=== PATIENT | male | born 1980 | race Caucasian/White ===

== ENCOUNTER 2020-06-16 12:02 | Inpatient (IN) ==
[2020-06-16] MEDS ORDERED: Morphine Sulfate 2 MG/ML SYRINGE IVP ONE (12:35)
[2020-06-16] MEDS ORDERED: Lidocaine 1% 20 ML MDV ONE (12:38)
[2020-06-16 12:44] LABS: Basophils % 0.2 %; Eosinophils # 0.3 K/mcL (0.0-0.6); Eosinophils % 2.9 %; Hematocrit 41.5 % (37.5-50.1); Hemoglobin 13.5 g/dL (12.9-16.9); Immature Granulocytes % 0.4 % (0-4); Lymphocytes # 2.1 K/mcL (0.6-4.6); Mean Corpuscular HGB Conc 32.5 g/dL (31.6-35.5); Mean Corpuscular Volume 89.2 fL (83.0-100.0); Mean Platelet Volume 9.4 fL (9.4-12.4); Monocytes # 0.8 K/mcL (0.0-1.3); Monocytes % 8.1 %; Neutrophils # 6.6 K/mcL (1.6-8.9); Platelet Count 221 K/mcL (140-400); Red Blood Count 4.65 M/mcL (4.19-5.50); Red Cell Distribution Width 14.2 % (11.5-14.5); Segmented Neutrophils % 67.4 %; White Blood Count 9.8 K/mcL (4.3-11.1)
[2020-06-16 12:48] LABS: INR 1.3; Prothrombin Time 14.7 Seconds (9.4-12.1)
[2020-06-16 13:04] LABS: Alanine Aminotransferase 57 Units/L (7-52); Albumin 4.2 g/dL (3.5-5.7); Albumin/Globulin Ratio 1.4 (1.1-2.2); Alkaline Phosphatase 81 Units/L (34-104); Aspartate Amino Transferase 31 Units/L (13-39); BUN/Creatinine Ratio 13 (6-26); Bilirubin,Total 0.3 mg/dL (0.3-1.0); Blood Urea Nitrogen 13 mg/dL (6-20); Calcium 9.1 mg/dL (8.6-10.3); Carbon Dioxide 30 mEq/L (23-29); Chloride 108 mEq/L (98-107); Glucose 83 mg/dL (70-105); Osmolality,Calculated 295 (280-300); Potassium 4.2 mEq/L (3.5-5.1); Sodium 143 mEq/L (136-145); Total Protein 7.2 g/dL (6.4-8.9); eGFR For African Americans > 60 (> 60); eGFR For Non-African Americans > 60 (> 60)
[2020-06-16 13:45] LABS: Adenovirus Not Detected (Not Detect); Bordetella Pertussis Not Detected (Not Detect); Chlamydophila pneumoniae Not Detected (Not Detect); Coronavirus 229E Not Detected (Not Detect); Coronavirus HKU1 Not Detected (Not Detect); Coronavirus NL63 Not Detected (Not Detect); Coronavirus OC43 Not Detected (Not Detect); Human Metapneumovirus Not Detected (Not Detect); Human Rhinovirus/Enterovirus Not Detected (Not Detect); Influenza A Subtype 2009 H1 Not Detected (Not Detect); Influenza B Not Detected (Not Detect); Mycoplasma pneumoniae Not Detected (Not Detect); Parainfluenza Virus 1 Not Detected (Not Detect); Parainfluenza Virus 2 Not Detected (Not Detect); Parainfluenza Virus 3 Not Detected (Not Detect); Parainfluenza Virus 4 Not Detected (Not Detect); Respiratory Syncytial Virus Not Detected (Not Detect); SARS-CoV-2 Not Detected (Not Detect)
[2020-06-16] MEDS ORDERED: Ibuprofen 400 MG TABLET PO PRN (14:24)
[2020-06-16] MEDS ORDERED: Ondansetron 4 MG/2 ML VIAL IVP PRN (14:24)
[2020-06-16] MEDS ORDERED: Naloxone 0.4 MG/ML INJ IVP PRN (14:24)
[2020-06-16] MEDS ORDERED: Acetaminophen 325 MG TABLET PO PRN (14:24)
[2020-06-16] MEDS: *HR* HYDROcodone/Acet 5/325 mg TABLET PO PRN ×2 (16:14→20:19)
[2020-06-16] MEDS: Nicotine 21 MG PATCH.TD24 TD SCH (17:16)
[2020-06-16] MEDS: Nicotine 2 MG GUM BC PRN ×2 (17:16→21:10)
[2020-06-16] MEDS: Gabapentin 300 MG CAPSULE PO SCH (20:19)
[2020-06-17] MEDS: hydrOXYzine pamoate 25 MG CAPSULE PO PRN ×3 (00:20→21:31)
[2020-06-17] MEDS: *HR* HYDROcodone/Acet 5/325 mg TABLET PO PRN ×5 (00:20→21:31)
[2020-06-17 01:26] LABS: Hematocrit 37.8 % (37.5-50.1); Hemoglobin 12.8 g/dL (12.9-16.9); Mean Corpuscular HGB Conc 33.9 g/dL (31.6-35.5); Mean Corpuscular Volume 88.5 fL (83.0-100.0); Mean Platelet Volume 9.7 fL (9.4-12.4); Platelet Count 210 K/mcL (140-400); Red Blood Count 4.27 M/mcL (4.19-5.50); Red Cell Distribution Width 14.1 % (11.5-14.5); White Blood Count 9.5 K/mcL (4.3-11.1)
[2020-06-17 01:45] LABS: BUN/Creatinine Ratio 12 (6-26); Blood Urea Nitrogen 12 mg/dL (6-20); Calcium 9.3 mg/dL (8.6-10.3); Carbon Dioxide 26 mEq/L (23-29); Chloride 106 mEq/L (98-107); Glucose 141 mg/dL (70-105); Magnesium 1.8 mg/dL (1.6-2.6); Osmolality,Calculated 290 (280-300); Potassium 3.7 mEq/L (3.5-5.1); Sodium 139 mEq/L (136-145); eGFR For African Americans > 60 (> 60); eGFR For Non-African Americans > 60 (> 60)
[2020-06-17] MEDS ORDERED: *HR* LORazepam 2 MG/ML VIAL IVP ONE (05:02)
[2020-06-17] MEDS: Nicotine 2 MG GUM BC PRN ×2 (06:16→10:32)
[2020-06-17] MEDS: Nicotine 21 MG PATCH.TD24 TD SCH (08:43)
[2020-06-17] MEDS: Gabapentin 300 MG CAPSULE PO SCH ×3 (08:43→20:09)
[2020-06-17] MEDS: Ketorolac 15 MG/ML VIAL IVP SCH ×3 (12:19→23:49)
[2020-06-17] MEDS ORDERED: *HR* HYDROmorphone (PF) 1 MG/ML SYRINGE IVP ONE (13:11)
[2020-06-17] MEDS ORDERED: *HR* Metoprolol 5 MG/5 ML VIAL IVP ONE (13:59)
[2020-06-17] MEDS ORDERED: diazePAM 5 MG TABLET PO ONE ×2 (14:44→14:48)
[2020-06-17] MEDS ORDERED: Melatonin 3 MG TABLET PO PRN (18:15)
[2020-06-17] MEDS ORDERED: 0.9 % Sodium Chloride 1,000 ML IVC ONE (18:38)
[2020-06-17] MEDS ORDERED: 0.9 % Sodium Chloride 1,000 ML ONE (18:40)
[2020-06-18] MEDS: *HR* HYDROcodone/Acet 5/325 mg TABLET PO PRN ×2 (03:21→08:28)
[2020-06-18] MEDS: Ketorolac 15 MG/ML VIAL IVP SCH ×2 (05:50→11:23)
[2020-06-18] MEDS: Gabapentin 300 MG CAPSULE PO SCH (08:28)
[2020-06-18] MEDS: Nicotine 21 MG PATCH.TD24 TD SCH (08:28)
[2020-06-18 10:36] VITALS: BP 128/77
[2020-06-18] MEDS: hydrOXYzine pamoate 25 MG CAPSULE PO PRN (11:26)
== END 2020-06-18 12:30 | disposition home or self-care (01) | DRG 201 ==
LOC: EMEROOARM 12:02 → 2ANU 12:02 → SUATTDRO 17:46
PROVIDERS: ADMIT Internal Medicine; ATTEND Family Medicine